=== PATIENT | female | born 1930 | race Caucasian/White ===

== ENCOUNTER 2017-12-12 21:09 | Observation (INO) | payer MEDICARE, BC ==
--- NOTE | 2017-12-12 22:16 | RAD ---
CHEST ONE VIEW: 12/12/17 COMPARISON: 09/22/16 HISTORY: Dyspnea. FINDINGS: Atherosclerosis of the aorta. Normal cardiac silhouette. Chronic change in the lung parenchyma. No co nsolidation or masses. No pleural effusion. Bilateral apical pleural thickening. No pneumothorax. Ch ronic changes to the left humerus. IMPRESSION: Chronic changes. POS: [facility]
[2017-12-12 22:33] LABS: CKMB 2.6 ng/mL (0-6.6); Troponin I Less than 0.010 ng/mL (< 0.028)
[2017-12-12] MEDS ORDERED: cefTRIAXone\\ROCEPHIN 1 GM VIAL ONE (22:53)
[2017-12-12] MEDS ORDERED: Sodium Chloride 0.9% 100 ML ONE (22:53)
[2017-12-12 23:16] LABS: #Eosinphils 0.1 thou/uL (0.0-0.7); #Lymphocytes 1.1 thou/uL (1.20-3.40); #Monocytes 0.4 thou/uL (0.11-0.59); #Neutrophils 7.6 thou/uL (1.40-6.50); %Eosinophils 1.6 % (0.0-10.0); %Lymphocytes 11.9 % (21.0-51.0); %Monocytes 3.8 % (0.0-10.0); %Neutrophils 82.7 % (42.0-75.0); Hemoglobin 12.3 g/dL (12.0-16.0); Mean Corpuscular HGB CONC 34.7 g/dL (32.0-36.0); Mean Corpuscular Hemoglobin 33.8 pg (27.0-31.0); Mean Corpuscular Volume 97.5 fl (81.0-99.0); Mean Platelet Volume 6.6 fL (7.4-10.4); Platelet Count 196 thou/uL (130-400); RBC Distribution Width 11.3 % (11.5-14.5); Red Blood Cell (RBC) Count 3.65 mill/uL (4.20-5.40); White Blood Cell (WBC) Count 9.2 thou/uL (4.8-10.8)
[2017-12-12 23:33] LABS: ALT (SGPT) 15 U/L (8-55); AST (SGOT) 13 U/L (5-34); Albumin 4.1 g/dL (3.4-4.8); Alkaline Phosphatase 99 U/L (40-150); Anion Gap 12 mmol/L (10-20); BUN (Urea Nitrogen) 24 mg/dL (9.8-20.1); Bilirubin, Total 0.3 mg/dL (0.2-1.2); Calc. Creatinine Clearance 0 mL/min (70-130); Carbon Dioxide 23 mmol/L (23-31); Chloride 96 mmol/L (98-107); Estimated GFR-MDRD 53; Globulin 2.8 g/dL (2.4-3.5); Glucose 149 mg/dL (83-110); Magnesium 2.5 mg/dL (1.6-2.6); Potassium 4.3 mmol/L (3.5-5.1); Protein, Total 6.9 g/dL (6.0-8.3); Sodium 127 mmol/L (136-145)
[2017-12-13 01:26] VITALS: BMI 22.1
[2017-12-13] MEDS ORDERED: Mag-Al 1200 mg/1200 mg/30 ML UDCUP PO PRN (01:52)
[2017-12-13] MEDS ORDERED: HYDROcodone/Acetaminophen 5/325 mg Tablet PO PRN (01:52)
[2017-12-13] MEDS ORDERED: Ondansetron HCl/PF 4 MG/2 ML Vial IVP PRN (01:52)
[2017-12-13] MEDS ORDERED: Loperamide HCl 2 MG CAP PO PRN (01:52)
[2017-12-13] MEDS ORDERED: Guaifenesin DM 100-10/5 ML UDCUP PO PRN (01:52)
[2017-12-13] MEDS ORDERED: Senokot 8.6 MG TAB PO PRN (01:52)
[2017-12-13] MEDS ORDERED: Milk Of Magnesia 30 ML UDCUP PO PRN (01:52)
[2017-12-13] MEDS ORDERED: Zolpidem Tartrate 5 MG TAB PO PRN (01:52)
[2017-12-13] MEDS ORDERED: Ondansetron ODT 4 MG TAB PO PRN (01:52)
[2017-12-13] MEDS ORDERED: Acetaminophen 325 MG TAB PO PRN (01:52)
--- NOTE | 2017-12-13 02:40 | HP ---
PRIMARY CARE PHYSICIAN: Mere Rice D.O. REASON FOR ADMISSION: Hyponatremia, mild COPD exacerbation. HISTORY OF PRESENT ILLNESS: An 87-year-old female who has underlying history of COPD [facility] of [facility]ness of breath. The patient denies any associated feve r, chills. She denies any chest pain. She denies any nausea, vomiting, diarrhea. She denies any UT I symptoms. She denies any cough productive of sputum. She denies any hemoptysis. She denies any l ower extremity edema, orthopnea, PND. The patient lives at assisted living facility in senior care. The patient was found to be in respir atory distress. She was given DuoNeb therapy by paramedics and magnesium sulfate was given and Solu- Medrol 125 mg was given. After that, patient was feeling much better. The patient reports that she is using oxygen during night time. Today in the emergency room, routine blood tests showed hyponatre ishan. Her blood pressure was also on lower side. She was afebrile. The patient is being admitted to medical floor for observation. REVIEW OF SYSTEMS: The following complete review of systems was negative, unless otherwise mentioned in the HPI or below: Constitutional: Weight loss or gain, ability to conduct usual activities. Sk in: Rash, itching. Eyes: Double vision, pain. ENT/Mouth: Nose bleeding, neck stiffness, pain, ten derness. Cardiovascular: Palpitations, dyspnea on exertion, orthopnea. Respiratory: Shortness of breath, wheezing, cough, hemoptysis, fever or night sweats. Gastrointestinal: Poor appetite, abdomi nal pain, heartburn, nausea, vomiting, constipation, or diarrhea. Genitourinary: Urgency, frequency , dysuria, nocturia. Musculoskeletal: Pain, swelling. Neurologic/Psychiatric: Anxiety, depression . Allergy/Immunologic: Skin rash, bleeding tendency. Please see my HPI for pertinent positive and negative. All other review of system reviewed and negative except as mentioned in the HPI. PAST MEDICAL HISTORY: Sensorineural deafness, hypertension, dyslipidemia, osteoarthritis, COPD, seiz ure disorder, history of brain tumor treated with radiation. PAST PSYCHIATRIC HISTORY: Anxiety and depression. PAST SURGICAL HISTORY: Tubal ligation. SOCIAL HISTORY: The patient is smoking about half pack per day. She denies any alcohol abuse. She denies any other illicit drug abuse. She lives at assisted living facility. FAMILY HISTORY: Mother from coronary artery disease. No seizure disorder in family. No strong family history of premature coronary artery disease, stroke, or cancer. ALLERGIES: FENTANYL and DILANTIN. CURRENT HOME MEDICATIONS: Oxcarbazepine 450 mg twice daily, topiramate 100 mg daily in afternoon and 150 mg at bedtime, Tessalon q.8 hourly p.r.n. EMERGENCY ROOM COURSE: The patient is given Rocephin 1 gram and DuoNeb therapy. PHYSICAL EXAMINATION: VITAL SIGNS: On arrival, blood pressure 95/76, pulse 90, respiratory rate 22, temperature 98.3, satu ration 97% on room air, weight 63.5 kilograms. GENERAL: The patient is currently alert, awake, no obvious acute distress. HEENT: Head: Normocephalic, atraumatic. Eyes: Pupils round, reactive to light. Extraocular muscl e intact. ENT: Oropharynx within normal limits. Moist mucous membranes. No oral lesion, no pharyn geal erythema, no exudate. NECK: Supple, no JVD, no thyromegaly, no carotid bruit. LUNGS: Bilateral few end expiratory wheezing heard, no rales, no accessory muscles of respiration in use. Air entry reduced. CARDIAC: S1, S2 regular. No murmur, no gallop, no rub. ABDOMEN: Soft, bowel sounds present, nontender, nondistended. No organomegaly, no mass, no suprapub ic tenderness. BACK: Unremarkable, no CVA tenderness. EXTREMITIES: Upper extremities: Passive movement of all joints are normal. Lower extremities: No edema. Good peripheral pulsation. SKIN: No skin rash. HEMATOLOGICAL SYSTEM: No lymphadenopathy. PSYCHIATRIC: Normal affect. NEUROLOGIC: Nonfocal examination. SIGNIFICANT LABORATORY DATA: EKG showing incomplete right bundle branch block pattern. Chest x-ray based on my review, no acute cardiopulmonary process, chronic changes. CBC: WBC 9.2, hemoglobin 12. 3, platelet 196. BMP: Sodium 127, potassium 4.3, chloride 96, BUN 24, creatinine 0.99, glucose 149, calcium 9.0. LFT: AST 13, ALT 15, alkaline phosphatase 99, albumin 4.1. Cardiac enzymes negative. BNP 37.0. ASSESSMENT AND PLAN/IMPRESSION: 1. Hyponatremia, hypochloremia, likely related with underlying dehydration. The patient will be giv en NS at 75 mL per hour and we will repeat BMP tomorrow. 2. Dehydration, likely due to poor p.o. intake. The patient will be given NS at 75 mL per hour and we will repeat BMP tomorrow. 3. Mild chronic obstructive pulmonary disease exacerbation. The patient will be given Solu-Medrol 2 0 mg IV q.8 hourly, DuoNeb therapy q.6 hourly, Dulera two puff inhalation b.i.d., Mucinex 600 mg twic e daily, empiric antibiotic therapy with Rocephin 1 gram q.24 hours. 4. Seizure disorder. We will continue patient's home medication, oxcarbazepine, topiramate. 5. Anxiety and depression. We will continue Zoloft 100 mg p.o. daily. 6. Protein calorie malnutrition, mild to moderate. The patient will be given nutritional supplement with Ensure t.i.d. 7. Hypotension. We will continue with IV fluid and will monitor hemodynamics. 8. Deep venous thrombosis prophylaxis not needed because we are expecting discharge in 24 hours. 9. Gastrointestinal prophylaxis, Pepcid 20 mg p.o. b.i.d. 10. Code status: The patient is FULL CODE. The patient does not have any surrogate decision maker. Disposition plan based on clinical course. We are expecting patient's stay in hospital [address] of care discussed with the patient in detail.
[2017-12-13] MEDS: Sodium Chloride 0.9% 1,000 ML IV SCH ×2 (04:48→17:52)
[2017-12-13 05:19] LABS: #Lymphocytes 0.5 thou/uL (1.20-3.40); #Monocytes 0.1 thou/uL (0.11-0.59); #Neutrophils 4.8 thou/uL (1.40-6.50); %Eosinophils 0.2 % (0.0-10.0); %Lymphocytes 8.7 % (21.0-51.0); %Monocytes 2.3 % (0.0-10.0); %Neutrophils 88.7 % (42.0-75.0); Hemoglobin 11.8 g/dL (12.0-16.0); Mean Corpuscular HGB CONC 34.3 g/dL (32.0-36.0); Mean Corpuscular Hemoglobin 34.1 pg (27.0-31.0); Mean Corpuscular Volume 99.4 fl (81.0-99.0); Mean Platelet Volume 6.8 fL (7.4-10.4); Platelet Count 180 thou/uL (130-400); RBC Distribution Width 11.4 % (11.5-14.5); Red Blood Cell (RBC) Count 3.46 mill/uL (4.20-5.40); White Blood Cell (WBC) Count 5.4 thou/uL (4.8-10.8)
[2017-12-13 05:28] LABS: Anion Gap 14 mmol/L (10-20); BUN (Urea Nitrogen) 25 mg/dL (9.8-20.1); Calc. Creatinine Clearance 39 mL/min (70-130); Carbon Dioxide 22 mmol/L (23-31); Chloride 97 mmol/L (98-107); Estimated GFR-MDRD 56; Glucose 156 mg/dL (83-110); Potassium 4.5 mmol/L (3.5-5.1); Sodium 128 mmol/L (136-145)
[2017-12-13] MEDS: Mometasone/Formoterol 120 PUFF INHALER INH SCH ×2 (06:09→18:35)
[2017-12-13] MEDS ORDERED: Famotidine 20 MG TAB PO SCH (09:00)
[2017-12-13] MEDS: guaiFENesin ER 600 MG TAB PO SCH ×2 (09:28→20:49)
[2017-12-13] MEDS ORDERED: PROVENTIL INHALER 6.7 G (200 INHALATIONS) INH PRN (11:18)
[2017-12-13] MEDS ORDERED: ALPRAZolam 0.25 MG TAB PO PRN (11:18)
[2017-12-13] MEDS ORDERED: Benzonatate 100 MG CAP PO PRN (11:21)
[2017-12-13] MEDS ORDERED: guaiFENesin ER 600 MG TAB PO PRN (11:34)
[2017-12-13] MEDS ORDERED: GLUCOSAMINE HCL 500 MG PO SCH (12:00)
[2017-12-13] MEDS ORDERED: OXcarbazepine 300 MG TAB PO SCH (12:00)
[2017-12-13] MEDS: Topiramate 100 MG TAB PO SCH (12:36)
[2017-12-13] MEDS: Ascorbic Acid 500 mg Chewable Tablet PO SCH ×2 (12:37→12:45)
[2017-12-13] MEDS: Calcium Carbonate + Vit D 1 TAB PO SCH (12:37)
[2017-12-13] MEDS: Multivit, Therapeutic 1 TAB PO SCH (12:37)
[2017-12-13] MEDS: Atorvastatin Calcium 10 MG TAB PO SCH (12:37)
[2017-12-13] MEDS: Fish Oil 1,000 MG CAP PO SCH (12:37)
[2017-12-13 19:54] LABS: Bilirubin Negative (Negative); Blood, Urine Negative (Negative); Clarity CLEAR (Clear); Glucose, Urine (Dipstick) Negative (Negative); Leukocyte Negative (Negative); Nitrite Negative (Negative); Protein, Urine (Dipstick) Negative (Neg-Trace); Specific Gravity, Urine 1.013 (1.002-1.036); Urobilinogen 0.2 mg/dL (0.2-1.0)
[2017-12-13 19:56] LABS: Bacteria/HPF None Seen HPF (None Seen); Hyaline Casts/LPF 0-3 HYALINE CAST LPF (0-3 Hyaline); Pathc Cast-AUWi Flag 0.14 (0-2.49); RBC/HPF 0-3 HPF (0-3); Squamous Epithelial 0-3 HPF (0-3); WBC/HPF 0-3 HPF (0-3)
[2017-12-13] MEDS: Zonisamide 100 MG CAP PO SCH (20:47)
[2017-12-13] MEDS: OXcarbazepine 300 MG TAB PO SCH (20:48)
[2017-12-13] MEDS ORDERED: Topiramate 100 MG TAB PO SCH (21:00)
[2017-12-13] MEDS ORDERED: cefTRIAXone\\ROCEPHIN 1 GM in Sodium Chloride 0.9% 100 ML IVPB SCH (22:00)
--- NOTE | 2017-12-14 03:49 | CON ---
DATE OF CONSULTATION: 12/13/2017 REFERRING PROVIDER: Dr. Fransico Stroud. REASON FOR CONSULTATION: Possible seizure. HISTORY OF PRESENT ILLNESS: Ms. Ivy is a pleasant 87-year-old female, who has been cons ulted for evaluation of possible seizure. History is obtained from the patient as well as the patien t's medical records and Dr. Fransico Stroud. Apparently, the patient has a history of meningioma, which has resulted in focal motor seizures involving the left side. She states that she has episodes of le ft arm and left leg jerking that comes on spontaneously. They have been under control with Trileptal . She currently takes Trileptal 750 mg twice daily. She states that he has episode of jerking once a month or so. Her last episode was about a 1.5 week ago, although she asked that I verified with [facility] assisted living facility. She had apparently been brought to the [facility] for com plaint of increasing shortness of breath. She was admitted for COPD exacerbation. According to Dr. Stroud, she had an episode of staring out in space, which was concerning for absence seizure and thus I am being asked to further evaluate and provide recommendations for this episode. PAST MEDICAL HISTORY: Significant for hypertension, dyslipidemia, COPD, osteoarthritis, seizure diso rder, history of meningioma with post-radiation and sensorineural deafness. PSYCHIATRIC HISTORY: Anxiety and depression. PAST SURGICAL HISTORY: Tubal ligation. SOCIAL HISTORY: She smokes about half pack per day. She denies alcohol use. She denies illicit akin g use. She is currently living in a assisted living facility. FAMILY HISTORY: None significant. CURRENT MEDICATIONS: Please review MAR. ALLERGIES: Include FENTANYL and DILANTIN. REVIEW OF SYSTEMS: As mentioned above in the HPI, otherwise negative. PHYSICAL EXAMINATION: VITAL SIGNS: Blood pressure of 107/70, pulse of 89, temperature of 97.6, respirations of 18, O2 sats of 97% on room air. GENERAL: Well-developed, well-nourished female, in no apparent distress. RESPIRATORY: Clear to auscultation bilaterally. CARDIOVASCULAR: Regular rate and rhythm. NEUROLOGIC: Mental status: The patient is awake, alert, oriented x2. She is stating current year 1986. Cranial nerves: Pupils are 3 mm and reactive. Visual chong are intact. External muscles are intact. No nystagmus is noted. Face is symmetric. Tongue and uvula are midline. Motor exam sh owed normal tone and bulk with a 5/5 strength in both upper and lower except left upper extremity has reduced strength due to prior shoulder injury. Sensory: Sensation is intact and symmetric. Babins ki: Plantar responses flexion bilaterally. Coordination intact to [id number]-[id number] and finger tap ping bilaterally. LABORATORY DATA: Labs are reviewed, which included CBC, CMP, which is significant for hemoglobin of 11.8, hematocrit of 34.4. Sodium of 128, glucose of 156, otherwise unremarkable. IMAGING STUDIES: None. IMPRESSION: 1. 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 2. Chronic obstructive pulmonary disease exacerbation. ASSESSMENT AND PLAN: Ms. Ivy is a pleasant 87-year-old female, who presented with the c hronic obstructive pulmonary disease exacerbation. Apparently, she was noted to have episode of conf usion, which may have been due to the chronic obstructive pulmonary disease exacerbation. It could b e also seizure induced, although it is not described any typical seizure that she has in the past. S he is already on Trileptal 750 mg twice daily, which I would recommend continuing for now. At some p oint, her primary care physician and neurologist may need to discuss about tapering down or off of th e Trileptal as her sodium level has been consistently been low over the past few months. Continue moon pportive care. Thank you for consultation.
[2017-12-14 05:04] LABS: #Lymphocytes 1.2 thou/uL (1.20-3.40); #Monocytes 0.5 thou/uL (0.11-0.59); #Neutrophils 4.5 thou/uL (1.40-6.50); %Basophils 0.3 % (0.0-1.0); %Eosinophils 0.4 % (0.0-10.0); %Lymphocytes 19.4 % (21.0-51.0); %Monocytes 7.3 % (0.0-10.0); %Neutrophils 72.7 % (42.0-75.0); Hemoglobin 10.5 g/dL (12.0-16.0); Mean Corpuscular HGB CONC 34.5 g/dL (32.0-36.0); Mean Corpuscular Hemoglobin 33.7 pg (27.0-31.0); Mean Corpuscular Volume 97.6 fl (81.0-99.0); Mean Platelet Volume 6.5 fL (7.4-10.4); Platelet Count 167 thou/uL (130-400); RBC Distribution Width 11.5 % (11.5-14.5); Red Blood Cell (RBC) Count 3.11 mill/uL (4.20-5.40); White Blood Cell (WBC) Count 6.2 thou/uL (4.8-10.8)
[2017-12-14 05:26] LABS: Anion Gap 10 mmol/L (10-20); BUN (Urea Nitrogen) 19 mg/dL (9.8-20.1); Calc. Creatinine Clearance 48 mL/min (70-130); Calcium 8.1 mg/dL (7.8-10.44); Carbon Dioxide 22 mmol/L (23-31); Chloride 104 mmol/L (98-107); Estimated GFR-MDRD 71; Glucose 121 mg/dL (83-110); Potassium 4.5 mmol/L (3.5-5.1); Sodium 131 mmol/L (136-145)
[2017-12-14] MEDS: Sodium Chloride 0.9% 1,000 ML IV SCH (05:26)
[2017-12-14] MEDS: Mometasone/Formoterol 120 PUFF INHALER INH SCH (06:53)
[2017-12-14] MEDS ORDERED: PROVENTIL INHALER 6.7 G (200 INHALATIONS) INH SCH (07:00)
[2017-12-14 07:26] VITALS: BP 119/70; TEMP 97.5
[2017-12-14] MEDS ORDERED: Famotidine 20 MG TAB PO SCH (09:00)
[2017-12-14] MEDS: OXcarbazepine 300 MG TAB PO SCH (09:56)
[2017-12-14] MEDS: Zonisamide 100 MG CAP PO SCH (09:56)
[2017-12-14] MEDS: guaiFENesin ER 600 MG TAB PO SCH (09:56)
[2017-12-14] MEDS: Ascorbic Acid 500 mg Chewable Tablet PO SCH (12:15)
[2017-12-14] MEDS: Multivit, Therapeutic 1 TAB PO SCH (12:15)
[2017-12-14] MEDS: Calcium Carbonate + Vit D 1 TAB PO SCH (12:15)
[2017-12-14] MEDS: Atorvastatin Calcium 10 MG TAB PO SCH (12:15)
[2017-12-14] MEDS: Fish Oil 1,000 MG CAP PO SCH (12:15)
[2017-12-14] MEDS: Topiramate 100 MG TAB PO SCH (12:15)
--- NOTE | 2017-12-14 12:36 | DIS ---
DATE OF ADMISSION: 12/13/2017 DATE OF DISCHARGE: 12/14/2017 PRIMARY CARE PROVIDER: Mere Rice D.O. DISCHARGE DIAGNOSES: 1. Chronic obstructive pulmonary disease exacerbation. 2. Hyponatremia. CONDITION OF PATIENT ON THE DAY OF DISCHARGE: Stable. I assessed Ms. Ivy on the day of discharge . She denies any chest pain or shortness of breath. Vital signs are stable. S1 and S2 are heard, r egular. Occasional expiratory wheeze heard on lung exam. DISCHARGE MEDICATIONS: She is being discharged home with Medrol Dosepak and cefdinir 300 mg 2 times a day for 10 days. Otherwise, her preadmission home medications were unchanged as dictated by Dr. Edgar thibodeaux in the history and physical note on 12/13/2017. CONSULTATIONS DURING THIS HOSPITALIZATION: Neurology, Dr. Telma Reno. HOSPITAL COURSE: Ms. Ivy is a pleasant 87-year-old lady who was admitted to [facility] on 12/13/2017 for COPD exacerbation as well as hyponatremia. She also reportedly had an episode of altered mental status just prior to admission. She was seen by Neurology Service, who fe lt that the altered mental status could have been secondary to chronic obstructive pulmonary disease exacerbation. She is on seizure medications, which Neurology Service has recommended to continue. er sodium improved to 131 on the day of discharge, up from 127 on 12/12/2017. Neurology Service seymour mmends continuing Trileptal at this time, but at some point, her primary care physician and neurologi may need to discuss about tapering down or off of the Trileptal because her sodium level has been consistently low over the past few months. Many thanks for allowing me to participate in your patient's care. Please feel free to contact me wi th any questions or concerns. She had a negative urinalysis during this hospitalization. On the day of discharge, she has sodium 1 31, potassium 4.5, creatinine 0.77, white count 6,200, hemoglobin 10.5, and platelet count 167,000. DISCHARGE DESTINATION: Home.
== END 2017-12-14 13:55 | disposition home or self-care (01) ==
LOC: ERS 21:09 → T4-A 12-13 00:01
PROVIDERS: ADMIT Internal Medicine; ATTEND Internal Medicine
DX: J44.1 Chronic obstructive pulmonary disease with (acute) exacerbation (principal); E87.1 Hypo-osmolality and hyponatremia; G40.109 Localization-related (focal) (partial) symptomatic epilepsy and epileptic syndromes with simple partial seizures, not intractable, without status epilepticus; D32.9 Benign neoplasm of meninges, unspecified; E87.8 Other disorders of electrolyte and fluid balance, not elsewhere classified; I10 Essential (primary) hypertension; E78.5 Hyperlipidemia, unspecified; E86.0 Dehydration; F41.8 Other specified anxiety disorders; E46 Unspecified protein-calorie malnutrition; I95.9 Hypotension, unspecified; M19.90 Unspecified osteoarthritis, unspecified site; Z88.5 Allergy status to narcotic agent; Z79.899 Other long term (current) drug therapy; Z68.22 Body mass index [BMI] 22.0-22.9, adult
CPT/HCPCS: 71045; 80048 ×2; 80053; 81001; 82553; 83735; 83880; 84484; 85025 ×3; 87086; 93005; 94640 ×5; 94760; 96365; 96366; 96375; 96376 ×2; 97139 ×2; 99285; G0378; 36415; A4216; J0696; J2920; J7050; J7620

== ENCOUNTER 2018-01-24 10:25 | Outpatient (CLI) | payer MEDICARE, BC | END 2018-01-24 10:26 | disposition home or self-care (01) | LOC: BICMRI 10:25 | PROVIDERS: ATTEND Psychiatry & Neurology Neurology | DX: G40.109 Localization-related (focal) (partial) symptomatic epilepsy and epileptic syndromes with simple partial seizures, not intractable, without status epilepticus (principal); G93.89 Other specified disorders of brain | CPT/HCPCS: 70551 ==

== ENCOUNTER 2018-07-26 15:10 | Outpatient (CLI) | payer MEDICARE, BC ==
[~2018-07-26 15:10] MED LIST: Gadobenate Dimeglumine 529 MG/1 ML (20ML VIAL) ONE
--- NOTE | 2018-07-26 17:08 | MRI ---
PRE AND POSTCONTRAST ENHANCED MRI IMAGING OF THE BRAIN 07/26/18 Comparison made to previous exam from 02/15/17. Multiplanar and multisequence pre and postcontrast enhanced MRI images of the brain demonstrate an en larging right parietal dural based mass significantly having increased in size. Three dimensional juan francisco surements at this time measures 3.9 x 3.9 x 4.4 cm having increased since the previous exam from . The mass now extends into the right parietal calvarium and expands it having more extensively eroded into the right parietal calvarium. The mass now also extends and invades the posterior aspect of the sagittal sinus. Deep white matter ischemic changes are also present. No other dural base mass lesions seen. IMPRESSION: Expanding and enlarging right parietal skull mass compatible with a meningioma compressing the adjace nt surrounding brain and appearing to invade and compress the posterior aspect of the sagittal sinus. POS: [facility]
== END 2018-07-26 15:11 | disposition home or self-care (01) ==
LOC: BICMRI 15:10
PROVIDERS: ATTEND Nurse Practitioner Acute Care
DX: D32.0 Benign neoplasm of cerebral meninges (principal); R22.0 Localized swelling, mass and lump, head
CPT/HCPCS: 70553; 82565; A9579

== ENCOUNTER 2018-08-02 12:38 | Emergency (ER) | payer MEDICARE, BC ==
[2018-08-02] MEDS ORDERED: Adacel (T-DAP) 0.5 ML SYRINGE ONE (13:24)
[2018-08-02] MEDS ORDERED: Bupivacaine 0.5% 10 ML VIAL ONE (13:24)
--- NOTE | 2018-08-02 13:56 | CT ---
CT OF BRAIN PERFORMED WITHOUT CONTRAST ENHANCEMENT: HISTORY: The patient reports losing her balance and falling this afternoon. She has a history of seizures and a history of meningioma. COMPARISON: A 07/26/2018 MRI study. FINDINGS: Generalized ventricular and sulcal prominence. There is a peripherally calcified right frontoparieta l extraaxial mass. The anterior component of this is similar to a CT study of 2016, but there is now posterior soft tissue extension with erosion into the bone. This has all been noted on the recent M RI exam. There is no hemorrhage or shift of midline structures associated with these findings. Mast oid air cells and visualized sinuses are clear. IMPRESSION: Large right-sided extraaxial frontoparietal mass with erosion into bone. Please refer to the MRI rep ort concerning complete findings. No signs of hemorrhage or evidence for any bleeding related to acu te trauma. POS: [facility]
--- NOTE | 2018-08-02 14:02 | CT ---
CT CERVICAL SPINE: HISTORY: Seizure. History of fall with tingling down left arm. The patient hit back of her head. FINDINGS: Axial images are obtained with coronal and sagittal reconstructed images of the cervical spine. Images demonstrate areas of bilateral apical lung parenchymal scarring seen. This is unchanged since the previous exam. Extensive changes of spondylosis in the cervical spine with disk-osteophyte comp lexes and anterior osteophytes at C2-3, C3-4, C4-5, C5-6, and C6-7. This is compatible with changes of spondylosis. IMPRESSION: Extensive cervical spondylosis with no evidence of acute cervical spine fracture seen. POS: [facility]
--- NOTE | 2018-08-02 14:17 | RAD ---
LEFT SHOULDER 2 VIEWS: Date: 08/02/18 HISTORY: Fall. Left shoulder injury. FINDINGS: Acromioclavicular and glenohumeral alignment are maintained. Old fracture of the humeral neck and hea d with distorted alignment after healing is similar to the chest radiograph from 12/12/17. Osseous st ructures are demineralized. IMPRESSION: 1. Deformity of the left shoulder is stable. Consistent with old injury and healing. No acute osseou s abnormalities are demonstrated. 2. Osteoporosis. POS: [facility]
== END 2018-08-02 14:33 ==
LOC: ERS 12:38
DX: S01.01XA Laceration without foreign body of scalp, initial encounter (principal); E78.5 Hyperlipidemia, unspecified; J44.9 Chronic obstructive pulmonary disease, unspecified; F41.9 Anxiety disorder, unspecified; F32.9 Major depressive disorder, single episode, unspecified; F17.210 Nicotine dependence, cigarettes, uncomplicated; Z79.899 Other long term (current) drug therapy; W19.XXXA Unspecified fall, initial encounter
CPT/HCPCS: 12002; 70450; 72125; 90715; 93005; J3490

== ENCOUNTER 2019-02-04 22:01 | Inpatient (IN) | payer MEDICARE, BC ==
[2019-02-05 00:46] VITALS: BMI 21.9
[2019-02-05] MEDS: Sodium Chloride 0.9% 1,000 ML IV SCH ×2 (00:50→06:10)
--- NOTE | 2019-02-05 08:52 | CON ---
DATE OF CONSULTATION: Ms. Ivy is an 88-year-old woman, who was transferred from the [facility] to [facility] and then transferred to [facility] via EMS for altered mental status. [facility] had identified a large dural-based mass on the right near the vertex of the parietal lobes with extension and bony erosion through the parieto-occipital skull and into the soft tissues of the scalp. This is actually seen on imaging at [facility] earlier this year, but does appear to be enlarged, particularly soft tissue component that is extracranial. There were concerns that this may be the reason for altered mental status. However, she also suffers from what sounds seizures and this could also be a source as recently reading her outpatient visit notes that it has been more difficult to control and medications have been changed in attempts to ameliorate this. On examination this morning, she actually is alert and very well oriented to place and situation. Her normal place of residence, date of , current month, and is able to talk through some previous visits she has had with Dr. Levi in our office regarding the same mass some 2 to 3 years ago. She asked questions regarding the prognosis as well as possible treatments for this and I feel again as previously decided our best recourses to watch this in a nonoperative fashion. Her preference would be for her to get back to the snf and have close follow-ups with Neurology and with Neurosurgery, specifically with Dr. Levi here in our office and then we will adjust plan as needed from there. Job ID: [id number]
[2019-02-05] MEDS ORDERED: Prevnar 13-Val Conj/PF 0.5 ML SYRINGE IM ONE (09:00)
[2019-02-05] MEDS ORDERED: Promethazine 25 MG TAB PO PRN (11:33)
[2019-02-05] MEDS ORDERED: Benzonatate 100 MG CAP PO PRN (11:33)
[2019-02-05] MEDS ORDERED: traMADol HCl 50 MG TAB PO PRN (11:33)
[2019-02-05] MEDS ORDERED: Acetaminophen 650 MG Suppository PR PRN (11:43)
[2019-02-05] MEDS ORDERED: Acetaminophen 325 MG TAB PO PRN (11:43)
[2019-02-05] MEDS ORDERED: Ondansetron ODT 4 MG TAB PO PRN (11:43)
[2019-02-05] MEDS ORDERED: Ondansetron PF 4 MG/2 ML Vial IVP PRN (11:43)
[2019-02-05] MEDS ORDERED: Furosemide 20 MG/2 ML VIAL SLOW IVP SCH (11:45)
--- NOTE | 2019-02-05 12:00 | RAD ---
SINGLE VIEW CHEST: HISTORY: Shortness of breath and crackles. COMPARISON: 01/25/2019 FINDINGS: Single view of the chest show normal sized cardiomediastinal silhouette. There is no evidence of cons olidation, mass, or pleural effusion. Degenerative changes are seen in the spine. Remodeling and de generative changes are seen in the left shoulder. IMPRESSION: No evidence of acute cardiopulmonary disease. POS: [facility]
[2019-02-05 14:35] LABS: #Basophils 0.1 thou/uL (0.0-0.2); #Eosinphils 0.1 thou/uL (0.0-0.7); #Lymphocytes 2.7 thou/uL (1.20-3.40); #Monocytes 1.3 thou/uL (0.11-0.59); #Neutrophils 11.2 thou/uL (1.40-6.50); %Basophils 0.6 % (0.0-1.0); %Eosinophils 0.4 % (0.0-10.0); %Lymphocytes 17.8 % (21.0-51.0); %Monocytes 8.6 % (0.0-10.0); %Neutrophils 72.5 % (42.0-75.0); Hemoglobin 11.8 g/dL (12.0-16.0); Mean Corpuscular HGB CONC 32.8 g/dL (32.0-36.0); Mean Corpuscular Hemoglobin 32.8 pg (27.0-31.0); Mean Corpuscular Volume 99.9 fL (78.0-98.0); Mean Platelet Volume 7.2 fL (7.4-10.4); Platelet Count 369 thou/uL (130-400); White Blood Cell (WBC) Count 15.4 thou/uL (4.8-10.8)
[2019-02-05 14:53] LABS: Lactic Acid 1.5 mmol/L (0.5-2.2)
[2019-02-05 14:56] LABS: Anion Gap 8 mmol/L (10-20); BUN (Urea Nitrogen) 33 mg/dL (9.8-20.1); Calc. Creatinine Clearance 33 mL/min (70-130); Calcium 9.5 mg/dL (7.8-10.44); Carbon Dioxide 35 mmol/L (23-31); Chloride 105 mmol/L (98-107); Estimated GFR-MDRD 50; Glucose 105 mg/dL (83-110); Potassium 3.9 mmol/L (3.5-5.1); Sodium 144 mmol/L (136-145)
[2019-02-05 16:23] VITALS: BP 159/68; TEMP 98.3
--- NOTE | 2019-02-05 18:15 | SS ---
DATE OF ADMISSION: 02/05/2019 DATE OF DISCHARGE: 02/05/2019 CONSULTING PHYSICIAN: Neurosurgery. DISCHARGE DIAGNOSES: 1. Enlarging dural base brain mass. 2. Altered mental status secondary to above, resolved. 3. Chronic obstructive pulmonary disease. 4. Congestive heart failure. 5. Hypertension with hyperlipidemia. 6. History of seizures. HOSPITAL COURSE: Ms. Ivy is a pleasant 88-year-old woman, who was transferred here due to altered mental status, known to have a subdural brain mass. The patient is normally A and O x4. Upon arrival to the emergency department, she was noted to be hypotensive with a blood pressure of 87/60. She had a CT of the brain before being transferred here at [facility], which showed slight enlargement of a large dural base mass on the right near the vertex of the parietal lobes with extension and bony erosion through the parieto-occipital skull and into the soft tissue of the scalp. Per Pablo Mcgraw, Neurosurgery PA, it was felt that the soft tissue component that is extracranial, it is what appeared slightly enlarged. The patient is known to have seizures associated with this mass. The seizures have apparently become worse more recently. Therefore, her medications have been recently changed. The patient has been cleared by Neurosurgery for discharge home and continue medical management with no indication for surgical intervention. She was advised to [facility] to the [facility] and have close followups with Neurology as fell as well as Dr. Levi of Neurosurgery. The patient is feeling well at the moment, but did complain of shortness of breath when initially seen this morning. She has known history of COPD and CHF, and did have fluids going at 75 mL/h. The patient had missed her morning dose of Lasix and had been missing her scheduled DuoNeb's. On exam, she had bilateral wheezing and rhonchi. We gave DuoNeb's, and I gave her a dose of Lasix 20 mg IV while waiting for laboratory studies and a chest x-ray. Chest x-ray was unremarkable. She had laboratory studies that were notable for an elevated white count of 15; however , the patient is on steroids for her COPD. The lactic acid was normal as was the procalcitonin. She has been afebrile. She normally uses oxygen at home. After reassessment, the patient states she felt significantly better after the DuoNeb' s and her wheezing has significantly improved. She said she has some wheezing at baseline. The patient has been tolerating a regular diet. She denies any complaints and is alert and oriented. Given the fact that she is back to baseline and given recommendations by Neurosurgery, she has been medically cleared for discharge home. PAST MEDICAL HISTORY: 1. Hyperlipidemia. 2. Musculoskeletal disorder, fracture to the left shoulder, old. 3. Brain tumor, treated with radiation, noted to be slightly enlarged per imaging done today at [facility]. 4. Diagnosed with meningioma in 2005. 5. COPD. 6. CHF. 7. History of seizures. 8. Anxiety. 9. Depression. PAST SURGICAL HISTORY: Tubal ligation. SOCIAL HISTORY: The patient currently smokes half a pack of cigarettes per day. Denies any alcohol use or drug use. ALLERGIES: 1. FENTANYL. 2. PHENYTOIN. CURRENT MEDICATIONS: 1. Alprazolam. 2. Benzonatate. 3. Baby aspirin. 4. Keppra. 5. Lovastatin. 6. Oxcarbazepine. 7. Promethazine. 8. Tramadol. 9. Zoloft. PHYSICAL EXAMINATION: GENERAL: The patient appears well developed, thin, and in no acute distress. VITAL SIGNS: HR 96, respirations 20, O2 saturation 99% on 2 L by nasal cannula, and blood pressure 151/73. HEENT: Normocephalic and atraumatic. Pupils are equal, round, and reactive to light. Sclerae without icterus. Oropharynx is clear. EOM intact. NECK: Supple. Full range of motion. LUNGS: Notable initially for diffuse inspiratory and expiratory wheezing. Much improved following DuoNeb's with only mild expiratory wheezing. CARDIAC: Regular rate and rhythm. ABDOMEN: Soft, nontender, nondistended. Normoactive bowel sounds present. EXTREMITIES: No lower leg swelling or edema. NEUROLOGIC: Alert and oriented x3. Answers questions appropriately. Speech normal. No deficits on exam. INVESTIGATIONS: As mentioned above. CONDITION AT DISCHARGE: Stable. ACTIVITY: As tolerated. DIET: Heart healthy/fluid restriction. DISCHARGE MEDICATIONS: The patient advised to resume all home medications including oxygen as per baseline. FOLLOWUP: 1. The patient advised to follow up with her primary care physician within 1 week. 2. Advised to follow up with Neurology as an outpatient. 3. Follow up with Dr. Levi of Neurosurgery as recommended. DISPOSITION: The patient medically cleared for discharge home on 02/05/2019. Discussed with Dr. Stroud who agrees with plan as above. Job ID: [id number] [facility]
[2019-02-05] MEDS ORDERED: guaiFENesin ER 600 MG TAB PO SCH (21:00)
[2019-02-05] MEDS ORDERED: Atorvastatin Calcium 10 MG TAB PO SCH (21:00)
[2019-02-05] MEDS ORDERED: OXcarbazepine 300 MG TAB PO SCH (21:00)
[2019-02-05] MEDS ORDERED: Famotidine 20 MG TAB PO SCH (21:00)
[2019-02-05] MEDS ORDERED: levETIRAcetam 500 MG TAB PO SCH (21:00)
[2019-02-06] MEDS ORDERED: predniSONE 20 MG TAB PO SCH (08:00)
[2019-02-06] MEDS ORDERED: Furosemide 20 MG TAB PO SCH (09:00)
[2019-02-06] MEDS ORDERED: Aspirin 81 mg Enteric Coated Tablet PO SCH (09:00)
== END 2019-02-05 18:45 | DRG 72 ==
LOC: ERS 22:01 → T4-A 02-05 00:32
PROVIDERS: ADMIT Family Medicine; ATTEND Family Medicine
DX: G93.89 Other specified disorders of brain (principal); E78.5 Hyperlipidemia, unspecified; J44.9 Chronic obstructive pulmonary disease, unspecified; F41.9 Anxiety disorder, unspecified; F32.9 Major depressive disorder, single episode, unspecified; F17.210 Nicotine dependence, cigarettes, uncomplicated; G40.909 Epilepsy, unspecified, not intractable, without status epilepticus; I50.9 Heart failure, unspecified; I11.0 Hypertensive heart disease with heart failure; Z98.51 Tubal ligation status; Z88.8 Allergy status to other drugs, medicaments and biological substances
CPT/HCPCS: 36415; 71045; 80048; 83605; 83880; 84145; 85025; 94640; J1940; J7620

== ENCOUNTER 2019-03-30 13:48 | Inpatient (IN) | payer MEDICARE, BC ==
[2019-03-30] MEDS ORDERED: Albuterol Sulfate 2.5 mg/0.5 ml Neb ONE (14:17)
--- NOTE | 2019-03-30 14:23 | RAD ---
EXAM: XR Chest 1 View Portable PROVIDED CLINICAL HISTORY: Cough COMPARISON: 02/05/2019 FINDINGS: Cardiac and mediastinal silhouette is unchanged in appearance. Vascular calcification involves the ao rtic arch. Development of right upper lung zone parenchymal opacity compatible with pneumonia. No pleural fluid or pneumothorax apparent. IMPRESSION: Right upper lung zone airspace disease compatible with pneumonia in the appropriate clinical context.
[2019-03-30] MEDS ORDERED: Dexamethasone 10 MG/ML VIAL ONE (14:24)
[2019-03-30] MEDS ORDERED: Magnesium 2 GM/50 ML BAG (IN WATER) ONE (14:26)
[2019-03-30 14:35] LABS: #Eosinphils 0.1 thou/uL (0.0-0.7); #Lymphocytes 2.6 thou/uL (1.20-3.40); #Monocytes 0.9 thou/uL (0.11-0.59); %Basophils 0.1 % (0.0-1.0); %Eosinophils 0.6 % (0.0-10.0); %Lymphocytes 17.9 % (21.0-51.0); %Monocytes 6.1 % (0.0-10.0); %Neutrophils 75.4 % (42.0-75.0); Hemoglobin 11.4 g/dL (12.0-16.0); Mean Corpuscular HGB CONC 33.1 g/dL (32.0-36.0); Mean Corpuscular Hemoglobin 32.9 pg (27.0-31.0); Mean Corpuscular Volume 99.5 fL (78.0-98.0); Platelet Count 315 thou/uL (130-400); RBC Distribution Width 12.2 % (11.5-14.5); Red Blood Cell (RBC) Count 3.47 mill/uL (4.20-5.40); White Blood Cell (WBC) Count 14.6 thou/uL (4.8-10.8)
[2019-03-30 14:50] LABS: Bacteria/HPF None Seen HPF (None Seen); Bilirubin Negative (Negative); Blood, Urine Negative (Negative); Clarity Clear (Clear); Glucose, Urine (Dipstick) Normal (Negative); Leukocyte Negative Leu/uL (Negative); Nitrite Negative (Negative); Protein, Urine (Dipstick) 30 mg/dL (Neg-Trace); RBC/HPF 0-3 HPF (0-3); Squamous Epithelial 0-3 HPF (0-3); Urobilinogen Normal mg/dL (Less than 2); WBC/HPF 0-3 HPF (0-3)
[2019-03-30 15:05] LABS: ALT (SGPT) 19 U/L (8-55); AST (SGOT) 16 U/L (5-34); Alkaline Phosphatase 147 U/L (40-150); Anion Gap 16 mmol/L (10-20); BUN (Urea Nitrogen) 24 mg/dL (9.8-20.1); Bilirubin, Total 0.3 mg/dL (0.2-1.2); CK (CPK) 25 U/L (29-168); Calc. Creatinine Clearance 0 mL/min (70-130); Calcium 9.6 mg/dL (7.8-10.44); Carbon Dioxide 26 mmol/L (23-31); Chloride 99 mmol/L (98-107); Estimated GFR-MDRD 49; Globulin 3.6 g/dL (2.4-3.5); Glucose 128 mg/dL (83-110); Lipase 15 U/L (8-78); Potassium 3.9 mmol/L (3.5-5.1); Protein, Total 7.6 g/dL (6.0-8.3); Sodium 137 mmol/L (136-145)
[2019-03-30] MEDS ORDERED: Enoxaparin Sodium 30 MG/0.3 ML SYRINGE SC SCH (16:15)
[2019-03-30 18:49] VITALS: BMI 22.1
--- NOTE | 2019-03-30 19:35 | HP ---
CHIEF COMPLAINT: Altered mental status. HISTORY OF PRESENT ILLNESS: This patient is an 88-year-old female, who lives in a assisted facility in [place]. The patient reports that she is not typically able to ambulate. She apparently had some altered mental status noted at the assisted facility and was transferred to the emergency department today. The patient herself reports that she has had some mild shortness of breath, cough, productive of a sputum that is slightly discolored over the last couple of days. Unaware of specifically having any fevers or chills. The patient was worked up in the emergency department to include a chest x-ray which revealed right upper lobe pneumonia. She was started on vancomycin and Levaquin. REVIEW OF SYSTEMS: The patient reports she has some dysuria. She also reports that she has had poor p.o. intake of water and that her food intake has been relatively modest as well. All other systems reviewed. No pertinent positives. All pertinent positives and negatives noted in the history of present illness. 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 She did have one prior admission with apparently some progression in size causing some altered mental status. She also has associated seizure disorder. History also includes COPD, CHF, hyperlipidemia, anxiety, depression. PAST SURGICAL HISTORY: Tubal ligation. FAMILY HISTORY: Not known. SOCIAL HISTORY: The patient is a [id number] smoker with no history of alcohol or drugs. She reports she has 3 daughters and a son. She is very clear and adamant that she is a DNAR, and any of her children would be her surrogate decision makers, although she made it clear that one of her daughters would like for her not to be a DNAR that she wishes to be DNAR herself. ALLERGIES: FENTANYL AND PHENYTOIN. CURRENT MEDICATIONS: 1. Proventil 2 puffs q.6 hours p.r.n. 2. Benzonatate 100 mg q.8 hours p.r.n. 3. Aspirin 81 mg p.o. daily. 4. DuoNeb p.r.n. 5. Keppra 500 mg b.i.d. 6. Lovastatin 40 mg daily. 7. p.o. q.12 hours. 8. Promethazine 25 mg q.12 hours p.r.n. 9. Tramadol 50 mg q.6 hours p.r.n. 10. Famotidine 20 mg daily. 11. Fish oil 1000 mg daily. 12. Lasix 20 mg daily. 13. Multivitamin one p.o. daily. 14. Tylenol p.r.n. 15. Vitamin D3 1000 units daily. 16. Zoloft 100 mg p.o. daily. PHYSICAL EXAMINATION: VITAL SIGNS: Blood pressure 112/43, pulse 105, respirations 20 to 24, O2 saturations 100% on 2 L. She was at 93% on room air. GENERAL APPEARANCE: Age-appropriate female. She is in no distress. She was sleeping but was awakening and conversant. She initially thought she might be in [place], but otherwise appears to have very good ability to converse relatively normally. HEENT: PERRL. No OP lesions. NECK: Supple. Symmetric. HEART: Regular rate and rhythm. Borderline tachycardia. LUNGS: Coarse breath sounds with scattered rales throughout all lung chong. ABDOMEN: Soft, nontender, and nondistended. Positive bowel sounds. No masses. No organomegaly. EXTREMITIES: There is some muscle atrophy. No cyanosis, clubbing, or edema. LABORATORY DATA: White count 14.6, hemoglobin 11.4, platelets 315. BUN 24, creatinine 1.06, glucose 128. CK 25. All of the chemistries normal. UA with some amorphous crystals, otherwise unremarkable. Chest x-ray as above with right upper lobe infiltrate. IMPRESSION AND PLAN: 1. Right upper lobe pneumonia. She received vancomycin and Levaquin in the emergency department. We will continue those for now. 2. Acute hypoxic respiratory failure secondary to pneumonias and chronic obstructive pulmonary disease. Continue with nebulizer treatments. Pending her course. May need to consider adding some steroids. 3. History of meningioma with associated seizure disorder. We will continue with her usual antiepileptic medications. 4. History of hyperlipidemia. We will continue with her usual statin regimen. 5. The patient reports some subjective dysuria; however, urinalysis appears to be unremarkable. 6. Sepsis secondary to pneumonia. The patient has persistent tachycardia and elevated white count. Her lactic acid level is actually normal, however, at 1.5 with a repeat of 1.2. Job ID: [id number]
[2019-03-30] MEDS: Acetaminophen 325 MG TAB PO PRN (20:34)
[2019-03-30] MEDS ORDERED: Vancomycin HCl 1 GM in Premix Bag 1 BAG IVPB SCH (21:00)
[2019-03-31 05:24] LABS: #Lymphocytes 1.8 thou/uL (1.20-3.40); #Neutrophils 10.1 thou/uL (1.40-6.50); %Eosinophils 0.1 % (0.0-10.0); %Lymphocytes 13.8 % (21.0-51.0); %Monocytes 7.6 % (0.0-10.0); %Neutrophils 78.4 % (42.0-75.0); Hemoglobin 7.8 g/dL (12.0-16.0); Mean Corpuscular HGB CONC 33.8 g/dL (32.0-36.0); Mean Corpuscular Hemoglobin 33.3 pg (27.0-31.0); Mean Corpuscular Volume 98.6 fL (78.0-98.0); Mean Platelet Volume 6.9 fL (7.4-10.4); Platelet Count 322 thou/uL (130-400); RBC Distribution Width 11.9 % (11.5-14.5); Red Blood Cell (RBC) Count 2.35 mill/uL (4.20-5.40); White Blood Cell (WBC) Count 12.9 thou/uL (4.8-10.8)
[2019-03-31 05:42] LABS: Anion Gap 13 mmol/L (10-20); BUN (Urea Nitrogen) 30 mg/dL (9.8-20.1); Calc. Creatinine Clearance 31 mL/min (70-130); Calcium 9.5 mg/dL (7.8-10.44); Carbon Dioxide 27 mmol/L (23-31); Chloride 101 mmol/L (98-107); Estimated GFR-MDRD 45; Glucose 91 mg/dL (83-110); Potassium 4.6 mmol/L (3.5-5.1); Sodium 136 mmol/L (136-145)
[2019-03-31 06:07] LABS: #Lymphocytes 1.6 thou/uL (1.20-3.40); #Monocytes 0.9 thou/uL (0.11-0.59); #Neutrophils 9.1 thou/uL (1.40-6.50); %Basophils 0.3 % (0.0-1.0); %Eosinophils 0.1 % (0.0-10.0); %Lymphocytes 13.8 % (21.0-51.0); %Monocytes 7.7 % (0.0-10.0); Mean Corpuscular HGB CONC 32.6 g/dL (32.0-36.0); Mean Corpuscular Hemoglobin 32.1 pg (27.0-31.0); Mean Corpuscular Volume 98.7 fL (78.0-98.0); Mean Platelet Volume 7.1 fL (7.4-10.4); Platelet Count 294 thou/uL (130-400); White Blood Cell (WBC) Count 11.6 thou/uL (4.8-10.8)
[2019-03-31] MEDS: Famotidine 20 MG TAB PO SCH (08:02)
[2019-03-31] MEDS ORDERED: Prevnar 13-Val Conj/PF 0.5 ML SYRINGE IM ONE (09:00)
[2019-03-31] MEDS: ALPRAZolam 0.25 MG TAB PO PRN ×2 (10:57→20:17)
[2019-03-31] MEDS: Benzonatate 100 MG CAP PO PRN ×3 (10:57→23:23)
[2019-03-31] MEDS ORDERED: traMADol HCl 50 MG TAB PO PRN (13:00)
[2019-03-31] MEDS ORDERED: ALPRAZolam 0.25 MG TAB PO PRN (13:00)
--- NOTE | 2019-03-31 14:26 | PDOC.HOSPP ---
- Subjective Subjective: Doing ok, except a little frustrated. Her room was too hot and there was no way to get it cooled, so she had to move rooms. Still feels a little hot. Breathing well in general. - Objective Vital Signs & Weight: Vital Signs (12 hours) Temp Pulse Resp BP BP Pulse Ox 03/31/19 10:56 97.5 F L 94 20 150/69 H 99 03/31/19 10:43 90 16 03/31/19 08:00 98 03/31/19 07:41 98.0 F 87 22 H 142/58 H 97 03/31/19 05:49 95 20 98 03/31/19 04:00 97.7 F 84 20 143/69 H 99 Weight Weight 125 lb 0.034 oz I&O: 03/30/19 03/31/19 04/01/19 06:59 06:59 06:59 Intake Total 160 Output Total 200 Balance -40 Result Diagrams: 03/31/19 05:51 03/31/19 05:11 Hospitalist ROS - Medication Medications: Active Medications Generic Name Dose Route Start Last Admin Trade Name Freq PRN Reason Stop Dose Admin Acetaminophen 650 mg 03/30/19 16:12 03/30/19 20:34 Tylenol PO 650 mg Q4H PRN Administration Headache/Fever/Mild Pain (1-3) Albuterol/Ipratropium 3 ml 03/30/19 16:18 03/31/19 05:49 Duoneb NEB 3 ml Q2H PRN Administration SOB &/or Wheezing Albuterol/Ipratropium 3 ml 03/31/19 10:30 03/31/19 10:43 Duoneb NEB 3 ml [id number] VADIM Administration Alprazolam 0.25 mg 03/31/19 10:29 03/31/19 10:57 Xanax PO 0.25 mg Q6H PRN Administration Anxiety/Agitation Benzonatate 100 mg 03/31/19 10:30 03/31/19 10:57 Tessalon PO 100 mg Q6H PRN Administration Cough Famotidine 20 mg 03/31/19 09:00 03/31/19 08:02 Pepcid PO 20 mg DAILY VADIM Administration Sertraline HCl 100 mg 04/01/19 09:00 03/31/19 13:59 Zoloft PO 100 mg DAILY VADIM Administration - Exam General Appearance: NAD, awake alert Neck: supple, symmetric, no JVD, no thyromegaly, no lymphadenopathy, no carotid bruit Heart: RRR, no murmur, no gallops, no rubs, normal peripheral pulses Respiratory: CTAB, no wheezes, no rales, no ronchi, normal chest expansion, no tachypnea, normal percussion Gastrointestinal: soft, non-tender, non-distended, normal bowel sounds, no palpable masses, no hepatomegaly, no splenomegaly, no bruit Extremities: no cyanosis, no clubbing, no edema Skin: normal turgor Musculoskeletal: generalized weakness Psychiatric: normal affect, normal behavior, A&O x 3 Psychiatric - other findings: Generally conversant. A little confused at times. Hosp A/P (1) Pneumonia Code(s): J18.9 - PNEUMONIA, UNSPECIFIED ORGANISM Status: Acute (2) Acute metabolic encephalopathy Code(s): G93.41 - METABOLIC ENCEPHALOPATHY Status: Acute (3) Meningioma Code(s): D32.9 - BENIGN NEOPLASM OF MENINGES, UNSPECIFIED Status: Acute (4) Dementia Code(s): F03.90 - UNSPECIFIED DEMENTIA WITHOUT BEHAVIORAL DISTURBANCE Status: Acute (5) Anxiety and depression Code(s): F41.9 - ANXIETY DISORDER, UNSPECIFIED; F32.9 - MAJOR DEPRESSIVE DISORDER, SINGLE EPISODE, UNSPECIFIED Status: Chronic (6) CKD (chronic kidney disease) stage 3, GFR 30-59 ml/min Status: Chronic (7) Dyslipidemia Code(s): E78.5 - HYPERLIPIDEMIA, UNSPECIFIED Status: Chronic (8) Seizure disorder Code(s): G40.909 - EPILEPSY, UNSP, NOT INTRACTABLE, WITHOUT STATUS EPILEPTICUS Status: Chronic - Plan She is doing well. Afebrile. WBC trending down. Appears comfortable. Continue IV abx today. Check room air sats. If everything looks good for tomorrow, can consider changing to po abx and discharging back the nursing facility.
[2019-03-31] MEDS ORDERED: Vancomycin HCl 750 MG in Sodium Chloride 0.9% 250 ML 250 ML IVPB SCH (15:00)
[2019-03-31] MEDS: OXcarbazepine 300 MG TAB PO SCH (20:17)
[2019-03-31] MEDS: Atorvastatin Calcium 10 MG TAB PO SCH (20:17)
[2019-03-31] MEDS: Acetaminophen 325 MG TAB PO PRN (20:17)
[2019-04-01] MEDS: ALPRAZolam 0.25 MG TAB PO PRN ×2 (05:12→20:21)
[2019-04-01 05:46] LABS: #Eosinphils 0.2 thou/uL (0.0-0.7); #Lymphocytes 1.8 thou/uL (1.20-3.40); #Monocytes 1.3 thou/uL (0.11-0.59); #Neutrophils 8.7 thou/uL (1.40-6.50); %Basophils 0.3 % (0.0-1.0); %Eosinophils 1.8 % (0.0-10.0); %Lymphocytes 14.5 % (21.0-51.0); %Monocytes 10.8 % (0.0-10.0); %Neutrophils 72.7 % (42.0-75.0); Hemoglobin 11.1 g/dL (12.0-16.0); Mean Corpuscular HGB CONC 31.7 g/dL (32.0-36.0); Mean Corpuscular Hemoglobin 31.3 pg (27.0-31.0); Mean Corpuscular Volume 98.5 fL (78.0-98.0); Platelet Count 346 thou/uL (130-400); RBC Distribution Width 12.1 % (11.5-14.5); Red Blood Cell (RBC) Count 3.54 mill/uL (4.20-5.40)
[2019-04-01 06:07] LABS: Anion Gap 13 mmol/L (10-20); BUN (Urea Nitrogen) 21 mg/dL (9.8-20.1); Calc. Creatinine Clearance 39 mL/min (70-130); Carbon Dioxide 30 mmol/L (23-31); Chloride 101 mmol/L (98-107); Estimated GFR-MDRD 59; Glucose 90 mg/dL (83-110); Sodium 140 mmol/L (136-145)
[2019-04-01] MEDS: OXcarbazepine 300 MG TAB PO SCH ×2 (08:01→20:21)
[2019-04-01] MEDS: Aspirin 81 mg Enteric Coated Tablet PO SCH (08:01)
[2019-04-01] MEDS: Furosemide 20 MG TAB PO SCH (08:01)
[2019-04-01] MEDS: Famotidine 20 MG TAB PO SCH (08:04)
--- NOTE | 2019-04-01 09:03 | PDOC.HOSPP ---
- Subjective Subjective: Says she does not feel great, but cannot be more specific. Says she has been coughing. - Objective Vital Signs & Weight: Vital Signs (12 hours) Temp Pulse Resp BP Pulse Ox 04/01/19 08:00 98.0 F 114 H 20 134/75 93 L 04/01/19 06:41 110 H 20 04/01/19 05:15 124 H 24 H 97 04/01/19 01:00 98 F 99 18 145/74 H 98 04/01/19 00:42 99 16 03/31/19 23:02 16 03/31/19 22:09 82 Weight Weight 125 lb 0.034 oz I&O: 03/31/19 04/01/19 04/02/19 06:59 06:59 06:59 Intake Total 160 110 Output Total 200 950 Balance -40 -840 Result Diagrams: 04/01/19 05:03 04/01/19 05:03 Hospitalist ROS - Medication Medications: Active Medications Generic Name Dose Route Start Last Admin Trade Name Freq PRN Reason Stop Dose Admin Acetaminophen 650 mg 03/30/19 16:12 03/31/19 20:17 Tylenol PO 650 mg Q4H PRN Administration Headache/Fever/Mild Pain (1-3) Albuterol/Ipratropium 3 ml 03/30/19 16:18 04/01/19 05:15 Duoneb NEB 3 ml Q2H PRN Administration SOB &/or Wheezing Albuterol/Ipratropium 3 ml 03/31/19 10:30 04/01/19 06:41 Duoneb NEB 3 ml [id number] VADIM Administration Alprazolam 0.25 mg 03/31/19 10:29 04/01/19 05:12 Xanax PO 0.25 mg Q6H PRN Administration Anxiety/Agitation Aspirin 81 mg 04/01/19 09:00 04/01/19 08:01 Ecotrin PO 81 mg DAILY VADIM Administration Atorvastatin Calcium 10 mg 03/31/19 21:00 03/31/19 20:17 Lipitor PO 10 mg HS VADIM Administration Benzonatate 100 mg 03/31/19 10:30 03/31/19 23:23 Tessalon PO 100 mg Q6H PRN Administration Cough Famotidine 20 mg 03/31/19 09:00 04/01/19 08:04 Pepcid PO 20 mg DAILY VADIM Administration Furosemide 20 mg 04/01/19 09:00 04/01/19 08:01 Lasix PO 20 mg DAILY VADIM Administration Levofloxacin 500 mg/ Device 100 mls @ 100 mls/hr 03/31/19 15:00 03/31/19 14: 40 IVPB 100 mls Q24HR VADIM Administration Vancomycin HCl 750 mg/ Sodium 250 mls @ 250 mls/hr 03/31/19 15:00 03/31/19 15 :47 Chloride IVPB 250 mls Q24HR VADIM Administration Oxcarbazepine 750 mg 03/31/19 21:00 04/01/19 08:01 Trileptal PO 750 mg BID VADIM Administration Sertraline HCl 100 mg 04/01/19 09:00 04/01/19 08:04 Zoloft PO 100 mg DAILY VADIM Administration - Exam General Appearance: NAD, awake alert Heart: RRR, no murmur Heart - other findings: Tachy Respiratory: rales (Scattered, bilateral.) Gastrointestinal: soft, non-tender, non-distended, normal bowel sounds, no palpable masses, no hepatomegaly, no splenomegaly, no bruit Extremities: no cyanosis, no clubbing, no edema Extremities - other findings: Mild diffuse TTP in BLE's. No palpable cords, equivocal Marisabel. Psychiatric: normal affect, normal behavior, not oriented Hosp A/P (1) Pneumonia Code(s): J18.9 - PNEUMONIA, UNSPECIFIED ORGANISM Status: Acute (2) Acute metabolic encephalopathy Code(s): G93.41 - METABOLIC ENCEPHALOPATHY Status: Acute (3) Meningioma Code(s): D32.9 - BENIGN NEOPLASM OF MENINGES, UNSPECIFIED Status: Acute (4) Dementia Code(s): F03.90 - UNSPECIFIED DEMENTIA WITHOUT BEHAVIORAL DISTURBANCE Status: Acute (5) Anxiety and depression Code(s): F41.9 - ANXIETY DISORDER, UNSPECIFIED; F32.9 - MAJOR DEPRESSIVE DISORDER, SINGLE EPISODE, UNSPECIFIED Status: Chronic (6) CKD (chronic kidney disease) stage 3, GFR 30-59 ml/min Status: Chronic (7) Dyslipidemia Code(s): E78.5 - HYPERLIPIDEMIA, UNSPECIFIED Status: Chronic (8) Seizure disorder Code(s): G40.909 - EPILEPSY, UNSP, NOT INTRACTABLE, WITHOUT STATUS EPILEPTICUS Status: Chronic (9) Tachycardia Code(s): R00.0 - TACHYCARDIA, UNSPECIFIED Status: Acute - Plan Looks ok, but says she does not feel very well. Developed tachycardia over night. D-dimer, ekg, cxr. WBC still slightly elevated and essentially unchanged from yesterday. Continue IV abx today. Check room air sats. Start Lovenox. Blood cultures remain negative.
--- NOTE | 2019-04-01 10:08 | RAD ---
CHEST ONE VIEW: HISTORY: Tachycardia. COMPARISON: 02/05/2019 03/30/2019 FINDINGS: Increased bronchovascular markings are noted bilaterally. Stable abnormal opacity in the right upper lobe. Heart size is within normal limits. Stable blunting of the costophrenic angles. Heterogeneo us bony demineralization. IMPRESSION: 1. Stable increased bronchovascular markings bilaterally. 2. Stable somewhat nodular abnormal opacity in the right upper lobe since 03/30/2019. Continued britney rt term followup in this regard. If this abnormal density persists, follow-up CT scan is suggested. POS: OFF
[2019-04-01] MEDS: Cefepime 1 GM in Sodium Chloride 0.9% 100 ML IVPB SCH ×2 (10:10→21:43)
[2019-04-01] MEDS: Enoxaparin Sodium 40 MG/0.4 ML SYRINGE SC SCH ×2 (10:11→20:22)
[2019-04-01] MEDS ORDERED: ISOVUE-370 76%-LOCM 1 ML ONE (13:01)
[2019-04-01 14:35] LABS: Vancomycin, Trough 8.8 ug/mL
--- NOTE | 2019-04-01 14:37 | CT ---
EXAM: CTA of the chest HISTORY: Shortness of breath COMPARISON: None TECHNIQUE: Multiple contiguous axial images were obtained a CTA of the chest with contrast per pulmon ishan embolism protocol. 3-D oblique MIP reformats and direct coronal reformats were performed. FINDINGS: HEART: Normal in size without focal cardiac abnormality. PULMONARY ARTERIES: Normal in caliber without filling defects to suggest pulmonary emboli. MEDIASTINUM: No hilar or mediastinal lymphadenopathy. LUNGS: Emphysematous changes are seen in the lungs. There is a focal area of consolidation in the pos terior aspect of the right upper lobe. PLEURAL SPACE: Minimal bilateral pleural effusions with adjacent atelectasis. CHEST WALL SOFT TISSUES: Unremarkable VISUALIZED OSSEOUS STRUCTURES: Degenerative changes in the spine. VISUALIZED SUBDIAPHRAGMATIC STRUCTURES: Calcified gallstone in the gallbladder neck. Hypodensities in the left kidney likely represent cysts. IMPRESSION: 1. No evidence of pulmonary thromboembolism 2. Right upper lobe infiltrate 3. Minimal bilateral pleural effusions with adjacent atelectasis 4. Cholelithiasis
[2019-04-01] MEDS: Vancomycin HCl 1.25 GM in Sodium Chloride 0.9% 250 ML 250 ML IVPB SCH (15:22)
[2019-04-01] MEDS: Atorvastatin Calcium 10 MG TAB PO SCH (20:21)
[2019-04-02] MEDS ORDERED: Bacteriostatic Water 30 ML VIAL FS PRN (01:41)
[2019-04-02] MEDS ORDERED: methylPREDNISolone Sod Succ 40 MG VIAL IVP SCH ×2 (01:45→06:00)
[2019-04-02] MEDS: OXcarbazepine 300 MG TAB PO SCH ×2 (08:01→20:42)
[2019-04-02] MEDS: Furosemide 20 MG TAB PO SCH (08:01)
[2019-04-02] MEDS: Enoxaparin Sodium 40 MG/0.4 ML SYRINGE SC SCH ×2 (08:01→20:43)
[2019-04-02] MEDS: Aspirin 81 mg Enteric Coated Tablet PO SCH (08:01)
[2019-04-02] MEDS: Famotidine 20 MG TAB PO SCH (08:01)
[2019-04-02] MEDS: Cefepime 1 GM in Sodium Chloride 0.9% 100 ML IVPB SCH ×2 (09:34→20:44)
[2019-04-02] MEDS: Vancomycin HCl 1.25 GM in Sodium Chloride 0.9% 250 ML 250 ML IVPB SCH (15:39)
--- NOTE | 2019-04-02 16:18 | PDOC.HOSPP ---
- Subjective Subjective: A little sleepy. Says she does not feel good, but cannot be specific. Same as last several days. - Objective Vital Signs & Weight: Vital Signs (12 hours) Temp Pulse Resp BP Pulse Ox 04/02/19 08:19 97.7 F 105 H 20 135/70 95 04/02/19 08:00 95 Weight Weight 125 lb 0.034 oz I&O: 04/01/19 04/02/19 04/03/19 06:59 06:59 06:59 Intake Total 110 270 Output Total 950 650 Balance -840 -380 Result Diagrams: 04/01/19 05:03 04/01/19 05:03 Hospitalist ROS - Medication Medications: Active Medications Generic Name Dose Route Start Last Admin Trade Name Freq PRN Reason Stop Dose Admin Acetaminophen 650 mg 03/30/19 16:12 03/31/19 20:17 Tylenol PO 650 mg Q4H PRN Administration Headache/Fever/Mild Pain (1-3) Albuterol/Ipratropium 3 ml 03/30/19 16:18 04/02/19 01:41 Duoneb NEB 3 ml Q2H PRN Administration SOB &/or Wheezing Alprazolam 0.25 mg 03/31/19 10:29 04/01/19 20:21 Xanax PO 0.25 mg Q6H PRN Administration Anxiety/Agitation Aspirin 81 mg 04/01/19 09:00 04/02/19 08:01 Ecotrin PO 81 mg DAILY VADIM Administration Atorvastatin Calcium 10 mg 03/31/19 21:00 04/01/19 20:21 Lipitor PO 10 mg HS VADIM Administration Benzonatate 100 mg 03/31/19 10:30 03/31/19 23:23 Tessalon PO 100 mg Q6H PRN Administration Cough Enoxaparin Sodium 40 mg 04/01/19 09:00 04/02/19 08:01 Lovenox SC 40 mg 0900,2100 VADIM Administration Famotidine 20 mg 03/31/19 09:00 04/02/19 08:01 Pepcid PO 20 mg DAILY VADIM Administration Furosemide 20 mg 04/01/19 09:00 04/02/19 08:01 Lasix PO 20 mg DAILY VADIM Administration Cefepime HCl 1 gm/ Sodium 100 mls @ 200 mls/hr 04/01/19 10:00 04/02/19 09:34 Chloride IVPB 100 mls 1000,2200 VADIM Administration Vancomycin HCl 1.25 gm/ Sodium 250 mls @ 166.667 mls/hr 04/01/19 15:00 15:39 Chloride IVPB 250 mls 1500 VADIM Administration Oxcarbazepine 750 mg 03/31/19 21:00 04/02/19 08:01 Trileptal PO 750 mg BID VADIM Administration Sertraline HCl 100 mg 04/01/19 09:00 04/02/19 08:01 Zoloft PO 100 mg DAILY VADIM Administration - Exam General Appearance: NAD, awake alert Heart: RRR, no murmur, no gallops, no rubs, normal peripheral pulses Heart - other findings: Tachy Respiratory: CTAB, no wheezes, no rales, no ronchi, normal chest expansion, no tachypnea, normal percussion Gastrointestinal: soft, non-tender, non-distended, normal bowel sounds, no palpable masses, no hepatomegaly, no splenomegaly, no bruit Skin: normal turgor Musculoskeletal: normal tone Psychiatric: not oriented Hosp A/P (1) Pneumonia Code(s): J18.9 - PNEUMONIA, UNSPECIFIED ORGANISM Status: Acute (2) Acute metabolic encephalopathy Code(s): G93.41 - METABOLIC ENCEPHALOPATHY Status: Acute (3) Meningioma Code(s): D32.9 - BENIGN NEOPLASM OF MENINGES, UNSPECIFIED Status: Acute (4) Dementia Code(s): F03.90 - UNSPECIFIED DEMENTIA WITHOUT BEHAVIORAL DISTURBANCE Status: Acute (5) Anxiety and depression Code(s): F41.9 - ANXIETY DISORDER, UNSPECIFIED; F32.9 - MAJOR DEPRESSIVE DISORDER, SINGLE EPISODE, UNSPECIFIED Status: Chronic (6) CKD (chronic kidney disease) stage 3, GFR 30-59 ml/min Status: Chronic (7) Dyslipidemia Code(s): E78.5 - HYPERLIPIDEMIA, UNSPECIFIED Status: Chronic (8) Seizure disorder Code(s): G40.909 - EPILEPSY, UNSP, NOT INTRACTABLE, WITHOUT STATUS EPILEPTICUS Status: Chronic (9) Tachycardia Code(s): R00.0 - TACHYCARDIA, UNSPECIFIED Status: Acute - Plan Looks ok, but says she does not feel very well. Daily situation. Tachy a little better now. Sinus tachy. Weaned the nebs. Will stop the steroids. WBC still slightly elevated. Likely related to the steroids. Continue IV abx today. Check room air sats. Lovenox. Blood cultures remain negative.
[2019-04-02] MEDS: Atorvastatin Calcium 10 MG TAB PO SCH (20:42)
[2019-04-02] MEDS: ALPRAZolam 0.25 MG TAB PO PRN (22:03)
[2019-04-03 08:13] VITALS: TEMP 97.7
[2019-04-03] MEDS: Famotidine 20 MG TAB PO SCH (08:36)
[2019-04-03] MEDS: Aspirin 81 mg Enteric Coated Tablet PO SCH (08:36)
[2019-04-03] MEDS: Furosemide 20 MG TAB PO SCH (08:36)
[2019-04-03] MEDS: OXcarbazepine 300 MG TAB PO SCH (08:36)
[2019-04-03] MEDS: Enoxaparin Sodium 40 MG/0.4 ML SYRINGE SC SCH (08:37)
[2019-04-03] MEDS: Cefepime 1 GM in Sodium Chloride 0.9% 100 ML IVPB SCH (10:22)
[2019-04-03 11:58] VITALS: BP 123/68
[2019-04-03] MEDS: Vancomycin HCl 1.25 GM in Sodium Chloride 0.9% 250 ML 250 ML IVPB SCH (15:08)
--- NOTE | 2019-04-04 06:17 | DIS ---
DATE OF ADMISSION: 03/30/2019 DATE OF DISCHARGE: 04/03/2019 DISCHARGE DIAGNOSES: 1. Sepsis. 2. Pneumonia. 3. Acute metabolic encephalopathy. 4. History of meningioma. 5. Dementia. 6. Anxiety and depression. 7. Chronic kidney disease, stage 3. 8. Dyslipidemia. 9. Seizure disorder. 10. Tachycardia. HISTORY OF PRESENT ILLNESS: This patient is an 88-year-old female, who initially presented via the emergency department with some report from the nursing facility that the patient was having some altered mental status and was therefore transferred to the emergency department. The patient reported some mild shortness of breath and cough productive of sputum that had been slightly discolored, although, her dementia limited ability to get significant information. Her workup included chest x-ray showed a right upper lobe infiltrate. She had a white count of 14.6, and it was felt that she was suffering from pneumonia with some acute hypoxic respiratory failure with a room air sat of 93% on room air. She was also felt to have sepsis given the tachycardia, elevated white count, and underlying evidence of pneumonia. HOSPITAL COURSE: The patient was admitted to the hospital with pneumonia and started on broad-spectrum antibiotics including vancomycin and Levaquin. She was also given steroids and some nebulizer treatments. She actually did quite well; however, she did develop some tachycardia on the second day of admission. It was felt that this might have been due to nebulizer treatments. Subsequent followup CT scan of the chest with CTA protocol failed to reveal any evidence of pulmonary embolus and only revealed the right upper lobe infiltrate. She had the nebulizers changed from scheduled to p.r.n. and the tachycardia did improve somewhat. We stopped the steroids and the tachycardia resolved completely. Symptomatically, the patient's cough seemed to improve significantly. There was no evidence that she was feeling any worse given her interviews, but again her dementia limited our ability to get a great history. PHYSICAL EXAMINATION: At the time of discharge, VITAL SIGNS: Temperature was 97.7, pulse 100, respirations 18, O2 saturations 100% on nasal cannula, BP was 123/68. GENERAL APPEARANCE: Age-appropriate female, in no distress. She is awake and alert. HEART: Regular rate and rhythm without murmurs. LUNGS: Clear bilaterally. ABDOMEN: Soft, nontender. EXTREMITIES: No edema. DISPOSITION: The patient is discharged back to the [facility] facility. ACTIVITY: As tolerated. DIET: She will be on a regular diet. DISCHARGE MEDICATIONS: She will be on Levaquin 500 mg daily. Continue with her usual medicines including, 1. Lovastatin 40 mg daily. 2. Fish oil 1000 mg daily. 3. Aspirin 81 mg daily. 4. Multivitamin one p.o. daily. 5. Vitamin D 3000 units daily. 6. Trileptal 750 mg b.i.d. 7. Benzonatate 100 mg q.8 hours p.r.n. 8. Tramadol 50 mg q.6 p.r.n. 9. Promethazine 25 mg q.12 hours p.r.n. 10. Trelegy Ellipta one inhalation daily. 11. DuoNeb p.r.n. 12. Lasix 20 mg daily. 13. Tylenol 650 mg daily p.r.n. 14. Pepcid 20 mg daily. 15. Xanax 0.25 mg q.6 hours p.r.n. anxiety. FOLLOWUP: She will follow up with Dr. Dr. Vivien Alvarado in [place], who is apparently her PCP and she can return to the hospital should she have need to do so. Time spent in discharge activities was 34 min. Job ID: [id number] [facility]
== END 2019-04-03 15:59 | DRG 871 ==
LOC: ERS 13:48 → T4-B 17:17
PROVIDERS: ADMIT Internal Medicine; ATTEND Internal Medicine
DX: A41.9 Sepsis, unspecified organism (principal); J18.1 Lobar pneumonia, unspecified organism; J96.01 Acute respiratory failure with hypoxia; G93.41 Metabolic encephalopathy; J44.0 Chronic obstructive pulmonary disease with (acute) lower respiratory infection; Z66 Do not resuscitate; G40.909 Epilepsy, unspecified, not intractable, without status epilepticus; I50.9 Heart failure, unspecified; E78.5 Hyperlipidemia, unspecified; F41.9 Anxiety disorder, unspecified; F32.9 Major depressive disorder, single episode, unspecified; F17.210 Nicotine dependence, cigarettes, uncomplicated; D32.9 Benign neoplasm of meninges, unspecified; F03.90 Unspecified dementia, unspecified severity, without behavioral disturbance, psychotic disturbance, mood disturbance, and anxiety; N18.3 Chronic kidney disease, stage 3 (moderate); H91.90 Unspecified hearing loss, unspecified ear; Z97.4 Presence of external hearing-aid; R30.0 Dysuria; R00.0 Tachycardia, unspecified; Z88.6 Allergy status to analgesic agent; Z88.8 Allergy status to other drugs, medicaments and biological substances; Z79.82 Long term (current) use of aspirin; Z79.899 Other long term (current) drug therapy; Z98.51 Tubal ligation status
CPT/HCPCS: 36415; 51701; 71045; 71275; 80048; 80053; 80202; 81003; 81015; 82550; 83605; 83690; 83880; 84484; 85025; 85379; 87040; 93005; 93010; 94640; 96365; 96368; 96375; A4353; J0692; J1100; J1650; J1956; J2920; J3370; J3475; J3490; J7050; J7611; J7620; Q9966

== ENCOUNTER 2019-06-03 04:23 | Inpatient (IN) | payer MEDICARE, BC ==
[2019-06-03] MEDS ORDERED: methylPREDNISolone Sod Succ/PF 125 MG/2 ML VIAL ONE (04:50)
[2019-06-03] MEDS ORDERED: Magnesium 2 GM/50 ML BAG (IN WATER) ONE (04:50)
[2019-06-03 05:37] LABS: #Eosinphils 0.1 thou/uL (0.0-0.7); #Lymphocytes 3.2 thou/uL (1.20-3.40); #Monocytes 0.7 thou/uL (0.11-0.59); #Neutrophils 14.4 thou/uL (1.40-6.50); %Basophils 0.1 % (0.0-1.0); %Eosinophils 0.4 % (0.0-10.0); %Lymphocytes 17.3 % (21.0-51.0); %Monocytes 3.7 % (0.0-10.0); %Neutrophils 78.4 % (42.0-75.0); Hemoglobin 12.3 g/dL (12.0-16.0); Mean Corpuscular HGB CONC 32.3 g/dL (32.0-36.0); Mean Corpuscular Volume 95.9 fL (78.0-98.0); Platelet Count 221 thou/uL (130-400); RBC Distribution Width 12.2 % (11.5-14.5); Red Blood Cell (RBC) Count 3.97 mill/uL (4.20-5.40); White Blood Cell (WBC) Count 18.4 thou/uL (4.8-10.8)
[2019-06-03 05:51] LABS: ALT (SGPT) 12 U/L (8-55); AST (SGOT) 17 U/L (5-34); Albumin 3.7 g/dL (3.4-4.8); Alkaline Phosphatase 133 U/L (40-110); Anion Gap 15 mmol/L (10-20); BUN (Urea Nitrogen) 25 mg/dL (9.8-20.1); Bilirubin, Total Less than 0.2 mg/dL (0.2-1.2); Calc. Creatinine Clearance 0 mL/min (70-130); Calcium 8.9 mg/dL (7.8-10.44); Carbon Dioxide 30 mmol/L (23-31); Chloride 99 mmol/L (98-107); Estimated GFR-MDRD 45; Globulin 3.1 g/dL (2.4-3.5); Glucose 212 mg/dL (83-110); Magnesium 3.9 mg/dL (1.6-2.6); Potassium 4.2 mmol/L (3.5-5.1); Protein, Total 6.8 g/dL (6.0-8.3); Sodium 140 mmol/L (136-145)
[2019-06-03 06:12] LABS: CKMB 1.3 ng/mL (0-6.6)
[2019-06-03] MEDS ORDERED: Dextrose 5 %-0.45 % NaCl 1,000 ML IV SCH (07:45)
[2019-06-03] MEDS ORDERED: FLU VACC TS2019-20(65YR UP)/PF 180 MCG/0.5 ML SYRINGE IM ONE (08:00)
[2019-06-03] MEDS ORDERED: Prevnar 13-Val Conj/PF 0.5 ML SYRINGE IM ONE (08:00)
[2019-06-03] MEDS ORDERED: Non-Formulary Item 1 EACH (Acetaminophen [Tylenol] 650 MG) PO PRN (08:02)
[2019-06-03] MEDS ORDERED: Benzonatate 100 MG CAP PO PRN (08:02)
[2019-06-03] MEDS ORDERED: ALPRAZolam 0.25 MG TAB PO PRN (08:02)
[2019-06-03] MEDS ORDERED: Acetaminophen 325 MG TAB PO PRN (08:09)
[2019-06-03] MEDS ORDERED: Non-Formulary Item 1 EACH (Levetiracetam [Keppra] 1,000 MG) PO SCH (09:00)
[2019-06-03] MEDS ORDERED: Non-Formulary Item 1 EACH (Lovastatin [Lovastatin] 40 MG) PO SCH (09:00)
[2019-06-03] MEDS: levETIRAcetam 500 MG TAB PO SCH ×2 (09:43→20:58)
[2019-06-03] MEDS: Aspirin 81 mg Enteric Coated Tablet PO SCH (09:43)
[2019-06-03] MEDS: Famotidine 20 MG TAB PO SCH (09:43)
[2019-06-03] MEDS: Furosemide 20 MG TAB PO SCH (09:43)
[2019-06-03] MEDS: methylPREDNISolone Sod Succ 40 MG VIAL IVP SCH (09:43)
--- NOTE | 2019-06-03 10:02 | RAD ---
PORTABLE CHEST: Date: 06/03/19 HISTORY: Difficulty breathing. COMPARISON: 04/01/19. FINDINGS: Heart size within normal limits. Atherosclerotic changes of the aorta. Chronic lung changes seen. Bon es are demineralized. Old post-traumatic change of left shoulder seen. IMPRESSION: Chronic lung change. No acute process. POS: [facility]
--- NOTE | 2019-06-03 11:26 | CON ---
DATE OF CONSULTATION: 06/03/2019 REASON FOR CONSULTATION: COPD exacerbation. HISTORY OF PRESENT ILLNESS: The patient is a very poor memory. She does not recall the events of yesterday. According to ER chart, she presented yesterday with shortness of breath. It looks like she was placed on BiPAP but that has now been removed. She says she feels back to her baseline. PAST MEDICAL HISTORY: 1. COPD. 2. Congestive heart failure. 3. Hyperlipidemia. 4. Anxiety. 5. Depression. 6. Seizure disorder. 7. Subdural meningioma. PAST SURGICAL HISTORY: Tubal ligation. SOCIAL HISTORY: Half pack per day smoker, has been smoking since age 20. Does not consume alcohol. Lives in the correction. FAMILY MEDICAL HISTORY: Unremarkable. ALLERGIES: FENTANYL, PHENYTOIN. MEDICATIONS: Prior to admission, 1. Zoloft 100 mg daily. 2. Tramadol 1 tablet every 6 hours as needed. 3. Phenergan 25 mg every 12 hours as needed. 4. Trileptal 750 mg b.i.d. 5. Trelegy Ellipta one puff daily. 6. Vitamin D3 1000 units daily. 7. Tylenol 650 mg as needed. 8. Keppra 1000 mg b.i.d. 9. Multivitamin one daily. 10. Lovastatin 40 mg daily. 11. Lasix 20 mg daily. 12. Fish oil 1000 mg daily. 13. Famotidine 20 mg daily. 14. Benzoate 100 mg every 8 hours as needed. 15. Aspirin 81 mg daily. 16. Xanax 0.25 mg every 6 hours as needed. REVIEW OF SYSTEMS: Cannot be obtained reliably as the patient is a very poor historian. PHYSICAL EXAMINATION: VITAL SIGNS: Temperature 97.4, respiratory rate 19, O2 saturation 95%, pulse 109. HEENT: Unremarkable. NECK: No adenopathy or JVD. CHEST: Clear with a few faint wheezes at the bases. CARDIAC: S1 and S2. Regular. ABDOMEN: Soft and nontender. EXTREMITIES: No edema. NEUROLOGICAL: Moves all 4 extremities without difficulty. LABORATORY DATA: White blood cell count 18.4, hematocrit 38, platelet count 221. Sodium 140, potassium 4.2, chloride 99, CO2 of 30, BUN 25, creatinine 1.1, glucose 212. Chest x-ray shows no mass, effusion, or infiltrate. ASSESSMENT: 1. Chronic obstructive pulmonary disease exacerbation. 2. Acute hypoxic respiratory failure, requiring noninvasive ventilation. 3. Dementia. 4. Continue tobacco abuse. PLAN: Reviewed orders. Agree with steroids, nebulization treatments, and antibiotics. If she does not need BiPAP throughout the day, then she can be transferred to floor this afternoon. Job ID: [id number]
[2019-06-03] MEDS: Simvastatin 5 MG TAB PO SCH (20:58)
[2019-06-03] MEDS: OXcarbazepine 300 MG TAB PO SCH (20:59)
[2019-06-04] MEDS: Mometasone 100 MCG HFA INHALER INH SCH ×2 (06:41→19:18)
[2019-06-04] MEDS: levETIRAcetam 500 MG TAB PO SCH ×2 (08:17→20:43)
[2019-06-04] MEDS: Aspirin 81 mg Enteric Coated Tablet PO SCH (08:17)
[2019-06-04] MEDS: OXcarbazepine 300 MG TAB PO SCH ×2 (08:17→21:17)
[2019-06-04] MEDS: Famotidine 20 MG TAB PO SCH (08:18)
[2019-06-04] MEDS: methylPREDNISolone Sod Succ 40 MG VIAL IVP SCH (08:18)
[2019-06-04] MEDS: Multivit, Therapeutic 1 TAB PO SCH (08:18)
[2019-06-04] MEDS: Furosemide 20 MG TAB PO SCH (08:18)
[2019-06-04] MEDS ORDERED: Non-Formulary Item 1 EACH (Fluticasone/Umeclidin/Vilanter [Trelegy Ellipta 100-62.5-25] 1 PO SCH (09:00)
[2019-06-04 09:11] LABS: #Basophils 0.1 thou/uL (0.0-0.2); #Lymphocytes 2.5 thou/uL (1.20-3.40); #Monocytes 0.5 thou/uL (0.11-0.59); #Neutrophils 5.3 thou/uL (1.40-6.50); %Eosinophils 0.5 % (0.0-10.0); %Lymphocytes 29.5 % (21.0-51.0); %Monocytes 6.1 % (0.0-10.0); %Neutrophils 62.9 % (42.0-75.0); Hemoglobin 11.6 g/dL (12.0-16.0); Mean Corpuscular Hemoglobin 31.7 pg (27.0-31.0); Mean Corpuscular Volume 95.9 fL (78.0-98.0); Mean Platelet Volume 7.7 fL (7.4-10.4); Platelet Count 231 thou/uL (130-400); RBC Distribution Width 12.3 % (11.5-14.5); Red Blood Cell (RBC) Count 3.65 mill/uL (4.20-5.40); White Blood Cell (WBC) Count 8.3 thou/uL (4.8-10.8)
--- NOTE | 2019-06-04 09:13 | PRG ---
DATE OF SERVICE: 06/04/2019 SUBJECTIVE: The patient is doing reasonably well. She complains of the lesion on her scalp. Breathing is okay. OBJECTIVE: VITAL SIGNS: Temperature is 98.0, pulse 92, blood pressure 149/62, and O2 saturation 100%. 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 NECK: No adenopathy or JVD. LUNGS: Clear anteriorly. CARDIAC: S1 and S2. Regular. ABDOMEN: Soft. EXTREMITIES: No edema. LABORATORY DATA: No labs were done today. Cultures have not shown any growth. ASSESSMENT: 1. Chronic obstructive pulmonary disease exacerbation. 2. Acute hypoxic respiratory failure that required noninvasive ventilation, but now has improved. 3. Dementia. 4. Tobacco abuse. PLAN: Transfer to the floor. Continue antibiotics and nebulization therapy. Hopefully back to the retirement by tomorrow. Job ID: [id number]
[2019-06-04 09:39] LABS: Anion Gap 15 mmol/L (10-20); BUN (Urea Nitrogen) 27 mg/dL (9.8-20.1); Calc. Creatinine Clearance 36 mL/min (70-130); Calcium 9.1 mg/dL (7.8-10.44); Carbon Dioxide 35 mmol/L (23-31); Chloride 97 mmol/L (98-107); Estimated GFR-MDRD 44; Glucose 119 mg/dL (83-110); Potassium 4.1 mmol/L (3.5-5.1); Sodium 143 mmol/L (136-145)
--- NOTE | 2019-06-04 12:03 | HP ---
HISTORY OF PRESENT ILLNESS: The patient is an 88-year-old female, who resides in a [facility], who presents to the hospital with complaints of worsening shortness of breath. Difficult to get a history from the patient. The patient has dementia. The patient has a history of COPD and apparently has been having some shortness of breath at [facility], so she was brought here for further evaluation. She currently denies any fevers or chills. PAST MEDICAL HISTORY: She wears a hearing aid. She has history of hyperlipidemia. She also has history of COPD. 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 She also has history of a meningioma. PAST SURGICAL HISTORY: She has had a tubal ligation. FAMILY HISTORY: Unable to obtain. SOCIAL HISTORY: She was a half a pack a day smoker. No alcohol use. No drug use. This is all per previous history. She has 3 daughters and son and she has an [id number] DNAR and I will confirm that with her family. ALLERGIES: SHE IS ALLERGIC TO FENTANYL AND PHENYTOIN. MEDICATIONS: She is on; 1. Proventil 2 puffs q.6 hours. 2. Benzonatate 100 mg q.8 hours p.r.n. 3. Aspirin 81 mg daily. 4. Keppra 500 mg b.i.d. 5. Tramadol 50 mg q.6 hours. 6. Lasix 20 mg daily. 7. Lovastatin 40 mg daily. REVIEW OF SYSTEMS: Unable to obtain. PHYSICAL EXAMINATION: VITAL SIGNS: Temperature of 98.8, respirations of 18, heart rate of 90, blood pressure of 140/65, and she is 100% on 2 L. GENERAL: She is awake, alert, does not appear in any distress. HEENT: Normocephalic, atraumatic. Pupils are equal and reactive to light. NECK: No lymphadenopathy noted. CARDIOVASCULAR: S1 and S2 present. No murmurs, rubs, or gallops. ABDOMEN: Soft and nontender. Bowel sounds are present x2. EXTREMITIES: No edema. Pedal pulses are present x2. NEUROVASCULAR: There are no focal deficits noted. SKIN: No cuts, lesions, or bruises noted. LABORATORY DATA: WBCs of 18.4, hemoglobin of 12.3, hematocrit of 38.1, and her platelets are 221. Chemistries; sodium of 140, potassium of 4.2, BUN of 25, and creatinine of 1.15. Her troponin was mildly elevated at 0.03, which has been in the past. Her BNP was 39.3. IMAGING DATA: Her chest x-ray did not show any significant bouts of pneumonia. ASSESSMENT AND PLAN: The patient is a very pleasant 88-year-old female, who presents to the hospital with shortness of breath. 1. Chronic obstructive pulmonary disease exacerbation. We will start the patient on DuoNeb. We will also do some prophylactic antibiotics. We will also start her on some low-dose steroids. The patient has had an echocardiogram earlier this year. Her ejection fraction was 60% to 65%. She also had a respiratory viral panel swab, which was essentially negative. If she feels okay, hopefully she will be discharged back to her [facility]. 2. History of seizures. We will continue her medications. 3. History of hyperlipidemia. We will continue her home medications. 4. Mild leukocytosis. She is not on chronic steroids. She might have a little bit baseline of myelodysplastic syndrome. Upon noting her WBCs, she has always had a little bit of WBCs since January 2019. We will recheck her labs this morning. 5. Deep venous thrombosis prophylaxis. We will put the patient on subcu Lovenox. Job ID: [id number]
[2019-06-04 14:31] VITALS: BMI 25.7
[2019-06-04] MEDS ORDERED: Lorazepam 2 MG/ML VIAL ONE (18:58)
[2019-06-04] MEDS: Simvastatin 5 MG TAB PO SCH (20:45)
[2019-06-05] MEDS: Mometasone 100 MCG HFA INHALER INH SCH (06:49)
[2019-06-05] MEDS: methylPREDNISolone Sod Succ 40 MG VIAL IVP SCH (08:24)
[2019-06-05] MEDS: Furosemide 20 MG TAB PO SCH (08:24)
[2019-06-05] MEDS: Multivit, Therapeutic 1 TAB PO SCH (08:24)
[2019-06-05] MEDS: levETIRAcetam 500 MG TAB PO SCH (08:24)
[2019-06-05] MEDS: Aspirin 81 mg Enteric Coated Tablet PO SCH (08:24)
[2019-06-05] MEDS: OXcarbazepine 300 MG TAB PO SCH (08:24)
[2019-06-05] MEDS: Famotidine 20 MG TAB PO SCH (08:24)
--- NOTE | 2019-06-05 08:58 | PRG ---
DATE OF SERVICE: 06/05/2019 SUBJECTIVE: The patient is near her baseline. It is very difficult to tell because she has dementia and confabulates many of her answers. OBJECTIVE: VITAL SIGNS: On exam, temperature is 98.1, pulse 81, respirations 14, O2 saturation 98% on 2 L, and blood pressure 156/67. HEAD AND NECK: Unremarkable. LUNGS: Clear. CARDIAC: S1 and S2. Regular. ABDOMEN: Soft. EXTREMITIES: No edema. ASSESSMENT: Chronic obstructive pulmonary disease with exacerbation. PLAN: This patient is stable to go home on antibiotics and tapered steroids. No further recommendations. Please recall if further assistance needed. Job ID: [id number]
[2019-06-05 12:02] VITALS: BP 136/73; TEMP 98.2
--- NOTE | 2019-06-07 07:02 | PQF ---
ALBIN LYNNBERNARD LEELEE [id number] CLINICAL DOCUMENTATION CLARIFICATION FORM: POST DISCHARGE Addendum to original discharge summary date: ____ Late entry note date: __ DATE:06/07/2019 ATTN:LEELEE PETE Please exercise your independent, professional judgment in responding to the clarification form. Clinical indicators are provided on the bottom of this form for your review Diagnosis: Acute hypoxic respiratory failure Present on Admission (POA): [ x] Yes [ ] No [ ] Unable to determine Coding guidelines require hospitals to identify whether a diagnosis was present on admission (POA) or not. To accurately assign the appropriate POA indicator, this information must be clearly documented within the medical record. CLINICAL INDICATORS - SIGNS / SYMPTOMS / LABS Resp-21,O2 sat 88 on room air-Documented in ED on 06/03 by Jatinder Frank Patient currently uses tobacco, smokes cigarettes-Documented in ED on 06/03 by Jatinder Frank Crackles heard throughout ,Chest exam included findings of chest movement symmetrical-Documented in ED on 06/03 by Jatinder Frank Respiratory distress-Documented in ED on 06/03 by Jatinder Frank COPD exacerbation-Documented in ED on 06/03 by Jatinder Frank Acute hypoxic respiratory failure that required noninvasive ventilation,but now has improved-Documented in PN on 06/04 by Be Jarrett RISK FACTORS: Patient currently uses tobacco, smokes cigarettes-Documented in ED on 06/03 by Jatinder Frank COPD exacerbation-Documented in ED on 06/03 by Jatinder Frank TREATMENT: 3 L oxygen:Oxygen delivery method-nasal cannula- Documented in Clinical panels [employer] Alterations Expert Crystal Reports Winform Viewer (This form is maintained as a part of the permanent medical record) 2014 [employer]. All Rights Reserved [email or web address] [not provided] [email or web address]
--- NOTE | 2019-06-07 08:03 | DIS ---
DATE OF ADMISSION: 06/03/2019 DATE OF DISCHARGE: 06/05/2019 DISCHARGE DIAGNOSES: 1. Shortness of breath, most likely secondary to acute on chronic obstructive pulmonary disease exacerbation. 2. History of seizures. 3. Hyperlipidemia. 4. Mild leukocytosis. HOSPITAL COURSE: The patient is a very pleasant 88-year-old female who initially presented to the hospital with shortness of breath. She was seen by Pulmonary and initially was put in the IMCU. The patient does have a history of anxiety and sometimes, she does get pretty anxious. She was initially put on BiPAP, which was transitioned off to her baseline of 2 L of nasal cannula. She continued to improve and she was back to her baseline at 2 L. The patient will be discharged home. She will receive some antibiotics and some steroids. MEDICATIONS: Will be: 1. Ipratropium 0.2 inhalation q.i.d. p.r.n. 2. Levaquin 500 mg daily for next two doses. 3. Prednisone 20 mg for the total of 5 days. 4. Xanax 0.25 q.6 hours p.r.n. 5. Aspirin 81 mg daily. 6. Pepcid 20 mg daily. 7. Fish oil 1000 mg p.o. daily. 8. Lasix 20 mg daily. 9. Lovastatin 40 mg daily. 10. Keppra 1000 mg b.i.d. 11. Trileptal 750 b.i.d. 12. Zoloft 100 mg p.o. daily. PHYSICAL EXAMINATION: VITAL SIGNS: Temperature of 98.2, pulse 89, respirations 20, 93% on 2 L, blood pressure 136/73. GENERAL: She is awake, alert, and oriented x3. Does not appear in any distress. CV: S1 and S2 present. No murmurs, rubs, or gallops. ABDOMEN: Soft and nontender. Bowel sounds present x2. The patient states that she feels well. She wants to go home. She also had a respiratory viral swab which was negative for any kind of viral infection. Job ID: [id number]
== END 2019-06-05 14:50 | DRG 189 ==
LOC: ERS 04:23 → IMCU/EMU 07:13 → T4-A 06-04 16:31
PROVIDERS: ADMIT Internal Medicine; ATTEND Internal Medicine
DX: J96.01 Acute respiratory failure with hypoxia (principal); J44.1 Chronic obstructive pulmonary disease with (acute) exacerbation; F17.210 Nicotine dependence, cigarettes, uncomplicated; E78.5 Hyperlipidemia, unspecified; F41.9 Anxiety disorder, unspecified; F32.9 Major depressive disorder, single episode, unspecified; Z98.51 Tubal ligation status; G40.909 Epilepsy, unspecified, not intractable, without status epilepticus; F03.90 Unspecified dementia, unspecified severity, without behavioral disturbance, psychotic disturbance, mood disturbance, and anxiety; D46.9 Myelodysplastic syndrome, unspecified; R79.89 Other specified abnormal findings of blood chemistry
CPT/HCPCS: 36415; 36416; 71045; 80048; 80053; 82553; 83735; 83880; 84484; 85025; 87040; 87633; 87798; 93005; 94640; 94660; 96365; 96367; 96375; J1956; J2060; J2920; J2930; J3475; J7620